=== PATIENT | male | born 1955 | race Caucasian/White ===

== ENCOUNTER → 2018-02-12 | Outpatient (CLI) | payer BC ==
[~2018-02-12] MED LIST: ALEVE 220MG220 MG PO; ALEVE220 MG PO; ASPIR-LOW81 MG PO; ASPIRIN E.C. 8181 MG PO; CALCIUM 600/VIT1 CAP PO; DULCOLAX PO; FERROUS SULFATE65 MG PO; FIBER SUPPLEMENT PO; FOLIC ACID 40400 MCG PO; GLUCOPHAGE500 MG/TAB PO; LEVOTHYROXINE PO; LIPITOR20 MG PO; LIPOFLAVONOID1 GEL TP; LOPRESSOR 225 MG/TAB PO; METANX PO; NEURONTIN100 MG/CAP PO; NORCO 325 MG-7.1 TAB PO; ROXICODONE 55 MG/TAB PO; SUPER EPA W/BO400 MG PO; SYNTHROID0.137 MG PO; THYROXINE; TYLENOL 325MG325 MG PO; VITAMIN C500 MG PO; VITAMIN D32000 IU PO; ZYLOPRIM 100MG100 MG PO
[2018-02-12 16:10] LABS: SYNOVIAL FL. MONONUCLEAR 39.6 % (0-75); SYNOVIAL FLUID RBC 17000 /mm3 (0-0); SYNOVIAL FLUID WBC 1164 /mm3 (200-600)
[2018-02-12 16:14] LABS: SYNOVIAL FLUID APPEARANCE CLOUDY; SYNOVIAL FLUID COLOR BROWN
== END ==
LOC: ZCOL.LAB 16:00
PROVIDERS: Orthopaedic Surgery
DX: M25.562 Pain in left knee (principal)

== ENCOUNTER 2018-07-02 06:22 | Day surgery (SDC) | payer BC ==
[~2018-07-02] VITALS: Ht 185.4 cm; Wt 166.8 kg
[2018-07-02 07:32] VITALS: BP 139/79; PULSE 74; TEMP 98.6
[2018-07-02] MEDS ORDERED: DULCOLAX STOOL100 MG PO (07:34)
[2018-07-02] MEDS ORDERED: CALCIUM CARBON650 M2 PO (07:35)
[2018-07-02] MEDS ORDERED: VITAMIN D31000 I1 PO (07:36)
[2018-07-02] MEDS ORDERED: FIBERCON PO (07:37)
[2018-07-02] MEDS ORDERED: SYNTHROID0.125 MG/T PO (07:39)
[2018-07-02] MEDS ORDERED: ZYLOPRIM 100MG100 MG PO (07:41)
[2018-07-02] MEDS ORDERED: LOPRESSOR 225 MG/TAB PO (07:42)
[2018-07-02] MEDS ORDERED: ASPIRIN 81M81 MG/TA2 PO (07:42)
[2018-07-02] MEDS ORDERED: LIPITOR20 MG PO (07:43)
[2018-07-02] MEDS ORDERED: METANX 2.8 MG-21 TA1 PO (07:44)
[2018-07-02] MEDS ORDERED: NEURONTIN800 MG/TAB PO (07:45)
[2018-07-02] MEDS ORDERED: GLUCOPHAGE1000 MG PO (07:45)
[2018-07-02] MEDS ORDERED: PROAIR HFA0.09 MG/AC IH (07:46)
[2018-07-02] MEDS ORDERED: CEPHALEXIN500 M1 PO (07:46)
[2018-07-02 10:27] VITALS: TEMP 97.8
[2018-07-02 10:35] VITALS: BP 120/57; PULSE 65
[2018-07-02 10:50] VITALS: BP 150/75; PULSE 64
[2018-07-02 11:05] VITALS: BP 137/75; PULSE 63
== END 2018-07-02 11:25 | disposition home or self-care (01) ==
LOC: SDCO 06:22
DX: N20.1 Calculus of ureter (principal); G47.33 Obstructive sleep apnea (adult) (pediatric); M17.0 Bilateral primary osteoarthritis of knee; G89.29 Other chronic pain; M54.2 Cervicalgia; E03.9 Hypothyroidism, unspecified; R73.03 Prediabetes; M10.9 Gout, unspecified; G62.9 Polyneuropathy, unspecified; J44.9 Chronic obstructive pulmonary disease, unspecified; E66.9 Obesity, unspecified; Z68.42 Body mass index [BMI] 45.0-49.9, adult; Z79.84 Long term (current) use of oral hypoglycemic drugs; Z79.82 Long term (current) use of aspirin; Z91.030 Bee allergy status; Z96.652 Presence of left artificial knee joint; Z90.49 Acquired absence of other specified parts of digestive tract; Z87.891 Personal history of nicotine dependence; Z86.73 Personal history of transient ischemic attack (TIA), and cerebral infarction without residual deficits; Z82.49 Family history of ischemic heart disease and other diseases of the circulatory system
CPT/HCPCS: C1769; C2617; J0690; J2405; J2704; J3010; J7030; Q9967

== ENCOUNTER → 2018-08-28 | Outpatient (CLI) | payer BC ==
[~2018-08-28] MED LIST changes: +ASPIRIN 81M81 MG/TA2 PO; +CALCITRATE 3151 TAB PO; +CEPHALEXIN500 M1 PO; +DULCOLAX STOOL100 MG PO; +FIBERCON PO; +GLUCOPHAGE1000 MG PO; +METANX 2.8 MG-21 TA1 PO; +NEURONTIN800 MG/TAB PO; +PREDNISONE 5MG5 MG PO; +PROAIR HFA0.09 MG/AC IH; +SYNTHROID0.125 MG/T PO; +VITAMIN D 400400 IU PO; +VITAMIN D31000 I1 PO
== END ==
LOC: COL.RAD 09:11
DX: R10.31 Right lower quadrant pain (principal); R10.11 Right upper quadrant pain

== ENCOUNTER 2019-01-26 17:00 | Emergency (ER) | payer BC ==
[~2019-01-26] VITALS: Ht 185.4 cm; Wt 172.7 kg
[2019-01-26 17:04] VITALS: TEMP 99
[2019-01-26 18:07] LABS: BASO # 0.1 (0.0-0.2); BASO % 0.6 % (0.0-2.0); EOS # 0.4 (0.0-0.7); EOS % 4.4 % (0-4.0); GRAN # 6.7 (1.4-6.5); HEMATOCRIT 39.8 % (42.0-52.0); HEMOGLOBIN 13.2 g/dl (13.5-18.0); LYMPH # 1.1 (1.2-3.4); LYMPH % 12.5 % (20.0-51.0); MEAN CELL VOLUME 93 fl (80.0-100.0); MEAN CORPUSCULAR HEMOGLOBIN 31 pg (27.0-31.0); MEAN CORPUSCULAR HGB CONC 33 g/dl (33.0-37.0); MEAN PLATELET VOLUME 9.7 fl (7.4-10.4); MONO # 0.5 (0.1-0.6); MONO % 5.2 % (1.7-9.3); PLATELET COUNT 177 K/mm3 (130-400); RED BLOOD COUNT 4.29 M/mm3 (4.20-5.60); REDCELL DISTRIBUTION WIDTH-CV 15.4 % (11.5-14.5)
[2019-01-26 18:30] LABS: ALBUMIN 3.8 gm/dL (3.5-5.0); BILIRUBIN,TOTAL 0.9 mg/dL (0.0-1.0); CALCIUM 8.7 mg/dL (8.4-10.2); CREATININE, serum 1.39 mg/dL (0.66-1.25); POTASSIUM 3.9 mmol/L (3.4-5.0); TOTAL PROTEIN 7.4 gm/dL (6.4-8.2)
[2019-01-26] MEDS ORDERED: FLEXERIL 1010 MG/TAB PO (20:14)
[2019-01-26 20:51] VITALS: BP 122/59; PULSE 70
== END 2019-01-26 20:51 | disposition home or self-care (01) ==
LOC: COL.ER 17:00
PROVIDERS: Emergency Medicine
DX: M54.6 Pain in thoracic spine (principal); R07.89 Other chest pain; Z87.442 Personal history of urinary calculi; Z79.82 Long term (current) use of aspirin
CPT/HCPCS: Q9967

== ENCOUNTER → 2019-02-12 | Outpatient (CLI) | payer BC ==
[~2019-02-12] MED LIST changes: +FLEXERIL 1010 MG/TAB PO
== END ==
LOC: COL.RAD 09:45
DX: K83.8 Other specified diseases of biliary tract (principal); R74.8 Abnormal levels of other serum enzymes; Z90.49 Acquired absence of other specified parts of digestive tract

== ENCOUNTER → 2019-03-05 | Outpatient (CLI) | payer BC | LOC: COL.RAD 07:01 | DX: R74.8 Abnormal levels of other serum enzymes (principal); Z90.49 Acquired absence of other specified parts of digestive tract ==

== ENCOUNTER 2019-07-30 19:40 | Emergency (ER) | payer BC ==
[~2019-07-30] VITALS: Ht 182.9 cm; Wt 175.0 kg
[2019-07-30 19:44] VITALS: TEMP 98.6
[2019-07-30 20:36] LABS: BASO # 0.1 (0.0-0.2); BASO % 0.8 % (0.0-2.0); EOS # 0.5 (0.0-0.7); EOS % 4.8 % (0-4.0); GRAN # 6.3 (1.4-6.5); GRAN % 67.6 % (42.2-75.2); HEMATOCRIT 39.7 % (42.0-52.0); HEMOGLOBIN 12.8 g/dl (13.5-18.0); LYMPH % 21.3 % (20.0-51.0); MEAN CELL VOLUME 90 fl (80.0-100.0); MEAN CORPUSCULAR HEMOGLOBIN 29 pg (27.0-31.0); MEAN CORPUSCULAR HGB CONC 32 g/dl (33.0-37.0); MEAN PLATELET VOLUME 9.9 fl (7.4-10.4); MONO # 0.5 (0.1-0.6); PLATELET COUNT 195 K/mm3 (130-400); RED BLOOD COUNT 4.43 M/mm3 (4.20-5.60); REDCELL DISTRIBUTION WIDTH-CV 15.7 % (11.5-14.5)
[2019-07-30 20:44] LABS: ALANINE AMINOTRANSFERASE 21 U/L (21-72); ALKALINE PHOSPHATASE 157 U/L (50-136); ANION GAP 13 mmol/L (7-16); AST,SGOT 29 U/L (15-37); BILIRUBIN,TOTAL 0.8 mg/dL (0.0-1.0); BLOOD UREA NITROGEN 12 mg/dL (9-20); CALCIUM 8.6 mg/dL (8.4-10.2); CARBON DIOXIDE 24 mmol/L (22-30); CHLORIDE 105 mmol/L (98-107); CREATININE, serum 1.28 (0.66-1.25); GLUCOSE 171 mg/dL (74-106); POTASSIUM 3.6 mmol/L (3.4-5.0); SODIUM 142 mmol/L (137-145); TOTAL PROTEIN 7.3 gm/dL (6.4-8.2)
[2019-07-30 20:45] LABS: INR 1.2 (0.8-3.0); PROTHROMBIN TIME 13.9 SECONDS (9.7-12.8)
[2019-07-30 21:14] LABS: TROPONIN-I < 0.012 ng/mL (0.000-0.035)
[2019-07-30 22:12] VITALS: BP 126/60; PULSE 83
== END 2019-07-30 22:22 | disposition home or self-care (01) ==
LOC: COL.ER 19:40
PROVIDERS: Emergency Medicine
DX: R27.0 Ataxia, unspecified (principal); G47.33 Obstructive sleep apnea (adult) (pediatric); E03.9 Hypothyroidism, unspecified; N18.9 Chronic kidney disease, unspecified; E66.9 Obesity, unspecified; G62.9 Polyneuropathy, unspecified; Z90.49 Acquired absence of other specified parts of digestive tract; Z96.652 Presence of left artificial knee joint; Z87.891 Personal history of nicotine dependence; Z79.82 Long term (current) use of aspirin; Z79.84 Long term (current) use of oral hypoglycemic drugs

== ENCOUNTER 2019-09-13 12:35 | Inpatient (IN) | payer BC, MEDICARE ==
[2019-11-17] VITALS (8 sets, daily range): BP systolic 94–127; BP diastolic 44–86; PULSE 59–69; TEMP 98.1
[2019-11-17] MEDS ORDERED: ELIQUIS 2.5 PO (07:44)
[2019-11-17] MEDS ORDERED: NORCO 325 MG-51 TAB PO (07:46)
--- NOTE | 2019-11-17 10:36 | NUR ---
Initial visit; Patient and his thanked [employer] S[employer]er for looking in on him and offering God's blessings.
--- NOTE | 2019-11-17 14:41 | NUR ---
DEISI met with the patient's , Herminia (ph#[phone]), to discuss discharge plan. The patient was in surgery. The patient lives in [place] with his . Herminia reports that the patient is independent with ADLs and that he has a cane and walker. The patient's PCP is Dr. Raf Gamble and he receives his medications at [facility]. Herminia reports no difficulties obtaining his meds. The patient's advanced directives are in EMR. His DPOA-HC is his . The patient plans to return home with his and receive outpatient PT at [facility] upon discharge. No additional needs at this time.
--- NOTE | 2019-11-17 14:50 | NUR ---
returned to room from PACU per bed, awake and alert, IV infusing and placed on pump at 125ml/hr, O2 on at 3L/NC, ojeda cath patent draining clear yellow urine, SCDs on bilaterally and lindy wraps to bilateral lower extremities, dressing to right knee CD&I, has full sensation and is able to move lower extremities, taking sips of water and tolerates well, denies needs, family at bedside
--- NOTE | 2019-11-17 15:15 | NUR ---
visits with family between checks, provided water and ice per his rerquest
--- NOTE | 2019-11-17 15:40 | NUR ---
provided toast and applesauce per patient's request for something to eat
--- NOTE | 2019-11-17 15:53 | NUR ---
report now given to SAYDA Lopez
--- NOTE | 2019-11-17 16:00 | NUR ---
TAKING OVER PATIENT'S CARE. RECEIVED REPORT FROM SAYDA ROMERO.
--- NOTE | 2019-11-17 16:50 | NUR ---
PATIENT NOW C/O PAIN STATING IN LLE RATED AT 5/10. GAVE PRN ROXICODONE, TWO TABS. PATIENT TOLERATING DIET WELL. NO C/O N/V. VSS. AT BEDSIDE.
--- NOTE | 2019-11-17 21:52 | NUR ---
Pt resting in bed. Ice to left knee. Alert and oriented with VSS. PM meds given. Licea catheter to dependent drainage. Pt rates pain about 4, requests prn pain medicine. denies needs at this time. call light within reach, will continue to monitor
--- NOTE | 2019-11-17 23:17 | NUR ---
Pt ambulated with nursing staff in room. walked about 25 ft
[2019-11-18] VITALS (7 sets, daily range): BP systolic 110–136; BP diastolic 54–67; PULSE 65–89; TEMP 97.7–99.3
--- NOTE | 2019-11-18 02:10 | NUR ---
Pt requests PRN pain medicine. Given per PRN orders. Denies other needs at this time. Call light within reach, will continue to monitor
[2019-11-18 07:07] LABS: HEMOGLOBIN 10.9 g/dl (13.5-18.0)
[2019-11-18 07:11] LABS: HEMATOCRIT 34.4 % (42.0-52.0)
--- NOTE | 2019-11-18 09:00 | NUR ---
Patient alert and oriented, answers questions appropriately. See assessment. RLE with ARISTEO in place, neuros intact, pulses palpable. Ice pack in place to RLE. Ambulates with walker and gait belt. C/o pain 4/10 to RLE. No other c/o at this time.
--- NOTE | 2019-11-18 11:10 | NUR ---
First visit from the scrip clerk. No needs right now.
--- NOTE | 2019-11-18 19:00 | NUR ---
Report received. Assumed care for hourly shift. Assessment complete. VS stable. A&Ox3. C/O pain to right knee-rating it 5/10-described as constant ache with some cramping. Oxycodone 10mg given per dr order. Reapplied lindy bandages to lower extremities. SCDs bilat. Cryocuff with fresh ice/water. Left hand INT flushes without difficulty. Encouraged to use IS. Denies nausea/shortness of breath. Assisted with repositioning. Denies concerns. Call light in reach. Will monitor.
--- NOTE | 2019-11-18 22:00 | NUR ---
Ambualted in hallway for approx 100 feet with stand by assistx2. Tolerated well.
--- NOTE | 2019-11-19 03:45 | NUR ---
Has rested well later this shift. Has struggled some getting to bathroom-states he is having a hard time finding the energy to get out of bed and moving the right lower extremity. Oxycodone 10mg given per dr order for pain rated 5/10 to right lower extremity-described as constant ache with occasional cramp. Did express concern with going home as he doesnt think he can manage with out assistance. Denies nausea/shortness of breath at rest. Tolerating PO. Voiding without difficulty. +flatus. Does have shortness of breath with exertion. Left lower extremity lindy bandage removed-states he just needs a break from it. Cryocuff with fresh ice water. Requested AM synthroid dose given now. Denies questions/concerns. Call light in reach. Will monitor.
[2019-11-19 03:55] VITALS: BP 149/70; PULSE 86; TEMP 98.6
--- NOTE | 2019-11-19 08:00 | NUR ---
PATIENT IS A&O. ASKS LOTS OF QUESTIONS AND TAKES NOTES DURING CONVERSATION WITH STAFF TO HELP HIM REMEMBER. PATIENT TAKE IS VERY SPECIFIC ABOUT CARES AND REQUIRES LOTS OF TIME WHEN IN HIS ROOM. PATIENT IS VERY OBESE, ACEWRAP TO BLE TEDS DO NOT FIT. RTK DRESSING IS CD&I WITH AQUACEL AND CRYOCUFF INPLACE. WEAK PEDAL PULSES TO BLE. NOTED +2 CHRONIC BLE EDEMA. 1-2 ASSIST. PATIENT IS VERY SLOW WITH ACTIVITY. PATIENT WANTING TO STAY IN HOSPITAL FOR THE WEEKEND. ORTHO DISCUSSED DISCHARGE TOMORROW. PATIENT IS NOT INTERESTED IN REHAB AT THIS TIME AND WANTS TO DISCHARGE TO HOME WITH .
[2019-11-19 08:41] VITALS: BP 156/71; PULSE 84; TEMP 98.7
[2019-11-19 12:28] VITALS: BP 119/53; PULSE 67; TEMP 98.7
[2019-11-19 16:58] VITALS: BP 127/57; PULSE 80; TEMP 98.4
[2019-11-19] MEDS ORDERED: ELIQUIS 5MG PO (18:29)
[2019-11-19] MEDS ORDERED: NORCO 325 MG-7.1 TAB PO (18:29)
[2019-11-19] MEDS ORDERED: ROXICODONE 55 MG/TAB PO (18:31)
[2019-11-19 20:00] VITALS: BP 144/75; PULSE 91; TEMP 99
--- NOTE | 2019-11-19 21:00 | NUR ---
Report received. Assumed care for sander and buffer. Assessment complete. VS stable. A&Ox3. Up to bathroom to void. Moving better than previous night. Did ambulate in hallway for approx 150 feet with stand-by assist with walker/gait belt. Denies nausea. Rating pain 5/10 to right knee-described as constant throbbing-oxycodone 10mg given [address] dr order. Tolerating PO. Voiding without difficulty. +flatus. Requesting a break from bilat lindy bandages/cryocuff. Will reapply in one hour. Assited with positioning in bed using proper alignment. Call light in reach. CPAP on. Will continue to monitor.
[2019-11-20 00:05] VITALS: BP 132/67; PULSE 83; TEMP 98.1
--- NOTE | 2019-11-20 04:00 | NUR ---
Has increased activity and been more independent this shift. Pain has been controlled adequately with PO pain meds. Voiding without difficulty. +Flatus. NO nausea/shortness of breath-Tolerating PO. VS remained stable. Ambulated in hallway last NOC with standby assist. Will bandages bilat/refused SCDs. Denies needs. Call light in reach. WIll monitor.
[2019-11-20 04:06] VITALS: BP 121/62; PULSE 74; TEMP 98.4
[2019-11-20 07:22] VITALS: BP 130/54; PULSE 78; TEMP 98
--- NOTE | 2019-11-20 11:40 | NUR ---
Patient sitting up in bed upon shift assessment. States his pain has been well controlled and the cryo-cuff helps with the pain. Patient has multiple blisters noted along the medial edge of his aquacell dressing on the right knee. There a number of very small fluid filled blisters and one large horizontal blister. Patient states these blisters have continued to increase in size since yesterday. some drainage noted to aquacell. Dr. Lombardi removed aquacell to ensure the blisters did not extend from the incision. Dr. Lombardi instructed to put on a new aquacell but place it slightly more lateral on the knee so the adhesive edge is not touching the blisters and to lightly cover the large blister with gauze and paper tape. Will discontinue use of the lindy wraps. Dr. Lombardi instructed patient to continue with frequent ankle pumps, wiggling toes and ambulating as tolerated. Patient has no further concerns at this time. Call light in reach.
[2019-11-20 11:45] VITALS: BP 146/53; PULSE 80; TEMP 97.9
--- NOTE | 2019-11-20 15:02 | NUR ---
Patient discharged to home accompanied by his and a friend. All discharge instructions reviewed and scripts for new medications given to patient. Additional aquacell given to patient to change at 7 days post-op. Patient and express no cnocerns regarding dressing change. Patient states he has no further questions. Patient and in agreement with discharge at this time. Patient wheeled out by TACHO Cadet.
== END 2019-11-20 15:06 | disposition home or self-care (01) | DRG 470 ==
LOC: JCC 11-17 07:54
PROVIDERS: ADMIT Orthopaedic Surgery
PROC: 0SRC0J9 Replacement of Right Knee Joint with Synthetic Substitute, Cemented, Open Approach (ICD-10-PCS; principal; 2019-11-17 13:15)
DX: M17.11 Unilateral primary osteoarthritis, right knee (principal); E66.01 Morbid (severe) obesity due to excess calories; I10 Essential (primary) hypertension; E11.42 Type 2 diabetes mellitus with diabetic polyneuropathy; J45.909 Unspecified asthma, uncomplicated; G47.30 Sleep apnea, unspecified; E03.9 Hypothyroidism, unspecified; E78.5 Hyperlipidemia, unspecified; M10.9 Gout, unspecified; Z90.49 Acquired absence of other specified parts of digestive tract; Z91.030 Bee allergy status; Z96.652 Presence of left artificial knee joint; Z79.82 Long term (current) use of aspirin; Z79.84 Long term (current) use of oral hypoglycemic drugs; Z87.442 Personal history of urinary calculi
CPT/HCPCS: 99221; 99232-AI; A4314; A9284; C1776; J0690; J2250; J2405; J2704; J3010; J3370; J7030

== ENCOUNTER 2019-10-31 11:12 | Emergency (ER) | payer BC ==
[~2019-10-31] VITALS: Ht 182.9 cm; Wt 172.7 kg
[2019-10-31 11:44] VITALS: BP 116/71; TEMP 98.1
[2019-10-31 15:04] LABS: BASO # 0.1 (0.0-0.2); BASO % 0.6 % (0.0-2.0); EOS # 0.3 (0.0-0.7); EOS % 3.2 % (0-4.0); GRAN # 6.9 (1.4-6.5); GRAN % 73.9 % (42.2-75.2); HEMATOCRIT 42.7 % (42.0-52.0); HEMOGLOBIN 13.6 g/dl (13.5-18.0); LYMPH # 1.5 (1.2-3.4); LYMPH % 15.8 % (20.0-51.0); MEAN CELL VOLUME 91 fl (80.0-100.0); MEAN CORPUSCULAR HEMOGLOBIN 29 pg (27.0-31.0); MEAN CORPUSCULAR HGB CONC 32 g/dl (33.0-37.0); MEAN PLATELET VOLUME 9.6 fl (7.4-10.4); MONO # 0.6 (0.1-0.6); PLATELET COUNT 188 K/mm3 (130-400); RED BLOOD COUNT 4.69 M/mm3 (4.20-5.60); REDCELL DISTRIBUTION WIDTH-CV 16.4 % (11.5-14.5)
[2019-10-31 15:22] LABS: ALANINE AMINOTRANSFERASE 24 U/L (21-72); ALBUMIN 4.1 gm/dL (3.5-5.0); ALKALINE PHOSPHATASE 167 U/L (50-136); ANION GAP 9 mmol/L (7-16); AST,SGOT 26 U/L (15-37); BILIRUBIN,TOTAL 0.8 mg/dL (0.0-1.0); BLOOD UREA NITROGEN 11 mg/dL (9-20); CARBON DIOXIDE 26 mmol/L (22-30); CHLORIDE 106 mmol/L (98-107); CREATININE, serum 1.19 (0.66-1.25); GLUCOSE 121 mg/dL (74-106); POTASSIUM 4.1 mmol/L (3.4-5.0); SODIUM 140 mmol/L (137-145); TOTAL PROTEIN 7.7 gm/dL (6.4-8.2)
[2019-10-31 15:31] LABS: TROPONIN-I < 0.012 ng/mL (0.000-0.035)
[2019-10-31 17:06] VITALS: PULSE 76
== END 2019-10-31 17:06 | disposition home or self-care (01) ==
LOC: COL.ER 11:12
PROVIDERS: Physician Assistant
DX: G51.9 Disorder of facial nerve, unspecified (principal); R07.89 Other chest pain; E66.9 Obesity, unspecified; N18.9 Chronic kidney disease, unspecified; G62.9 Polyneuropathy, unspecified; Z90.89 Acquired absence of other organs; Z79.84 Long term (current) use of oral hypoglycemic drugs; Z79.82 Long term (current) use of aspirin

== ENCOUNTER 2023-06-13 14:37 | Outpatient (RCR) | payer MEDICARE ==
[~2023-06-13 14:37] MED LIST changes: +ELIQUIS 2.5 PO; +ELIQUIS 5MG PO; +NORCO 325 MG-51 TAB PO
[2023-08-22] MEDS ORDERED: JARDIANCE25 (20:05)
[2023-08-22] MEDS ORDERED: PRINIVIL5 MG PO (20:06)
[2023-08-22] MEDS ORDERED: METAMUCIL3.4 GM/DOS PO (20:06)
[2023-08-22] MEDS ORDERED: MASON NATURAL2000 IU PO (20:07)
[2023-08-22] MEDS ORDERED: ASPIRIN 81M81 MG/TA2 PO (20:07)
[2023-08-22] MEDS ORDERED: OZEMPIC1 MG/0.71 SQ (20:10)
[2023-08-23] MEDS ORDERED: CARDIZEM CD 30300 MG PO (09:53)
[2023-08-23] MEDS ORDERED: ELIQUIS 5MG PO (09:53)
== END 2023-07-03 | disposition home or self-care (01) ==
LOC: MKS.ESL.PT
DX: E11.42 Type 2 diabetes mellitus with diabetic polyneuropathy (principal)

== ENCOUNTER 2023-10-24 15:17 | Inpatient (IN) | payer MEDICARE ==
[~2023-10-24] VITALS: Ht 185.4 cm; Wt 159.0 kg
[~2023-10-24 15:17] MED LIST changes: +CARDIZEM CD 30300 MG PO; +JARDIANCE25; +MASON NATURAL2000 IU PO; +METAMUCIL3.4 GM/DOS PO; +OZEMPIC1 MG/0.71 SQ; +PRINIVIL5 MG PO
[2023-10-29] VITALS (7 sets, daily range): BP systolic 91–127; BP diastolic 66–88; PULSE 74–99; TEMP 97.8–99
[2023-10-29] MEDS ORDERED: NS Flush 10 ML SYRINGE BID ICA SCH (09:00)
[2023-10-29] MEDS ORDERED: NS Flush 10 ML SYRINGE PRN ICA (09:00)
[2023-10-29 09:23] LABS: BASO # 0.1 K/mm3 (0.0-0.2); BASO % 0.9 % (0.0-2.0); EOS # 0.5 K/mm3 (0.0-0.7); EOS % 4.7 % (0.0-4.0); GRAN # 6.8 K/mm3 (1.4-6.5); GRAN % 69.3 % (42.2-75.2); HEMATOCRIT 46.3 % (42.0-52.0); HEMOGLOBIN 15.3 g/dl (13.5-18.0); LYMPH % 19.9 % (20.0-51.0); MEAN CELL VOLUME 88 fl (80.0-100.0); MEAN CORPUSCULAR HEMOGLOBIN 29 pg (27-31); MEAN CORPUSCULAR HGB CONC 33 g/dl (33.0-37.0); MEAN PLATELET VOLUME 9.9 fl (7.4-10.4); MONO # 0.5 K/mm3 (0.1-0.6); MONO % 4.9 % (1.7-9.3); PLATELET COUNT 211 K/mm3 (130-400); RED BLOOD COUNT 5.24 M/mm3 (4.20-5.60); REDCELL DISTRIBUTION WIDTH-CV 16.2 % (11.5-14.5)
[2023-10-29 09:32] LABS: ALBUMIN 3.3 gm/dL (3.4-4.8); CALCIUM 8.5 mg/dL (8.4-10.2); CREATININE, serum 1.36 mg/dL (0.72-1.25); MAGNESIUM 1.6 mg/dL (1.6-2.6); POTASSIUM 3.7 mmol/L (3.5-4.5); TOTAL PROTEIN 6.7 gm/dL (6.2-8.1)
[2023-10-29 09:48] LABS: INR 1.4 (0.8-3.0); PROTHROMBIN TIME 15.4 SECONDS (9.7-12.8)
--- NOTE | 2023-10-29 10:00 | NUR ---
PT IS A DIRECT ADMIT ON THE FLOOR VIA WHEELCHAIR APPROX 0850, AT BEDSIDE. PT HAS OWN CPAP AND ASKING FOR DISTILLED WATER. INTAKE DONE BY SAYDA JACOBSEN. TELE ON AND PT IN PERSONAL CLOTHES. 22G IN RIGHT WRIST STARTED INTIALLY, PT SHORTLY AFTER COMPLAINING OF DISCOMFORT AT IV SITE. IV IN RIGHT WRIST REMOVED AND A 20G IN RIGHT FOREARM STARTED. PT A&OX4, LUNGS CTA, PT DENIES RECENT FALL AND REPORTS GETTING AROUND INDEPENDENTLY AT HOME. PT SITTING IN RECLINER AND DENIES NEEDS AT THIS TIME. PT ORIENTED TO ROOM AND DENIES NEEDS AT THIS TIME
[2023-10-29] MEDS ORDERED: COGNIQUIL CAPS1 EACH PO (10:34)
[2023-10-29] MEDS ORDERED: Temazepam 15 MG CAP PO PRN (11:15)
[2023-10-29] MEDS ORDERED: Acetaminophen 500 MG TAB PO PRN (11:15)
[2023-10-29] MEDS ORDERED: Docusate Sodium 100 MG CAP PO PRN (11:15)
[2023-10-29] MEDS ORDERED: *Potassium Replacement Protocol MC SCH (13:00)
[2023-10-29] MEDS ORDERED: Magnesium Sulfate 4% 50 ML IV ONE (13:00)
[2023-10-29] MEDS ORDERED: Potassium Bicarbonate/Citrate 20 MEQ Effervescent TAB PO SCH (13:00)
[2023-10-29] MEDS ORDERED: HYDROcodone/Acetaminophen 7.5-325 MG TAB PO PRN (13:15)
[2023-10-29] MEDS ORDERED: Albuterol 0.083% Neb Soln 2.5 MG/3 ML UD IH PRN (13:15)
[2023-10-29] MEDS ORDERED: Gabapentin 400 MG CAP PO SCH (14:00)
--- NOTE | 2023-10-29 14:00 | NUR ---
2G MAG HUNG PER ORDER AND POTASSIUM REPLACED DOSE 1/2. PT REPORTING LIGHTHEADEDNESSM, CARDIOLOGY TEAM AWARE. FALL RISK WRIST BAND PLACED ON PT AND MARKER PLACED ON DOOR. PT NOT IN YELLOW GOWN AND STILL IN PERSONAL CLOTHES, CONTINENT, FULLY ORIENTED AND ABLE TO CALL WHEN NEED. PT GIVEN STERILE WATER FOR CPAP AND IS LAYING IN BED. PT GIVEN PRINTED EDUCATION ON SOTALOL AND DILTIAZEM. BED ALARM ON, CALL LIGHT IN REACH, BED IN LOWEST POSITION.
[2023-10-29] MEDS ORDERED: metFORMIN 500 MG TAB PO SCH (17:00)
--- NOTE | 2023-10-29 19:27 | NUR ---
REPORT GIVEN TO SAYDA CORONADO
--- NOTE | 2023-10-29 19:50 | NUR ---
Assessment complete. A&Ox4. Denies nausea/shortness of breath/chest pain. VS stable. Currently or RA. TELE reporting AFIB. INT to left FA flushes without difficulty. No s/s of infiltration noted. Rating pain 6/10 to bilat lower ext-described as burning r/t neuropathy. Will contact Dr Leonard for new orders for home medications. QTC 441. Plan of care discussed for this shift to include meds/pain control/tele/EKG/calling for questions/concerns. Verbalizes understanding. Call light in reach. Will monitor.
--- NOTE | 2023-10-29 20:51 | NUR ---
Sandrine requesting [place]-states he takes norco several times a day for bilat lower ext pain and neuropathy. Dr Leonard paged as currently not ordered. States okay to start home dose.
[2023-10-29] MEDS ORDERED: Apixaban 5 MG TAB PO SCH (21:00)
[2023-10-29] MEDS ORDERED: Cholecalciferol (Vit D3) 1000 Units TAB PO SCH (21:00)
[2023-10-29] MEDS ORDERED: Allopurinol 100 MG TAB PO SCH (21:00)
[2023-10-29] MEDS ORDERED: Atorvastatin 20 MG TAB PO SCH (21:00)
--- NOTE | 2023-10-29 21:53 | NUR ---
Up to bathroom at this time-stand by assist. Voided without difficulty. Back to bed at this time. CPAP on. Will monitor.
[2023-10-30] VITALS (14 sets, daily range): BP systolic 92–128; BP diastolic 57–77; PULSE 71–89; TEMP 97.1–98.3
--- NOTE | 2023-10-30 04:50 | NUR ---
Patient had an uneventful night. Received norco x1 for leg pain. Denied chest pain/shortness of breath/nausea. VS remained stable-slightly hypotensive. Denies current questions/concerns. Call light in reach. Will monitor.
--- NOTE | 2023-10-30 05:33 | NUR ---
Patient requested norco for left foot pain-described as burning-rated 7/10. [place] given per dr order.
--- NOTE | 2023-10-30 06:48 | NUR ---
Report given to SAYDA Benitez.
[2023-10-30] MEDS ORDERED: Psyllium Powder 5.8 G (3.4 G Psyllium) PACKET PO SCH (07:00)
[2023-10-30 07:49] LABS: BASO # 0.1 K/mm3 (0.0-0.2); EOS # 0.5 K/mm3 (0.0-0.7); EOS % 5.2 % (0.0-4.0); GRAN # 5.2 K/mm3 (1.4-6.5); GRAN % 60.2 % (42.2-75.2); HEMATOCRIT 43.4 % (42.0-52.0); HEMOGLOBIN 13.7 g/dl (13.5-18.0); LYMPH # 2.3 K/mm3 (1.2-3.4); MEAN CELL VOLUME 90 fl (80.0-100.0); MEAN CORPUSCULAR HEMOGLOBIN 28 pg (27-31); MEAN CORPUSCULAR HGB CONC 32 g/dl (33.0-37.0); MEAN PLATELET VOLUME 9.5 fl (7.4-10.4); MONO # 0.6 K/mm3 (0.1-0.6); MONO % 6.4 % (1.7-9.3); PLATELET COUNT 208 K/mm3 (130-400); RED BLOOD COUNT 4.82 M/mm3 (4.20-5.60); REDCELL DISTRIBUTION WIDTH-CV 16.1 % (11.5-14.5)
[2023-10-30 08:13] LABS: CALCIUM 8.5 mg/dL (8.4-10.2); CREATININE, serum 1.35 mg/dL (0.72-1.25); POTASSIUM 3.7 mmol/L (3.5-4.5)
[2023-10-30] MEDS ORDERED: Potassium Bicarbonate/Citrate 20 MEQ Effervescent TAB PO SCH (08:30)
--- NOTE | 2023-10-30 08:45 | NUR ---
PT LAYING IN BED UPON ENTERING, CPAP ON. ASSESSMENT DONE, MEDS GIVEN PER ORDER. POTASSIUM BEING REPLACED, DOSE 1/2 GIVEN. PT DENIES PAIN OR SHORTNESS OF BREATH AT THIS TIME. LUNGS CTA, HEARTRATE IRREGULAR. DAY 2 OF SOTALOL DOSE GIVEN. IV IN LEFT FOREARM FLUSHES WELL WITH NO SIGNS OF COMPLICATIONS. PT REFUSED COLACE REPORTING SOFT FORMED STOOLS. BREAKFAST EATEN AND TRAY REMOVED FROM ROOM. PT DENIES LIGHTHEADNESS OR DIZZINESS AND NIGHT NURSE REPORTED THIS WELL STATING THAT HE WAS TAKEN OFF FALL RISK THROUGHOUT THE NIGHT. THIS NURSE THINKS THAT PT IS A LOW FALL RISK AT THIS TIME. PT DENIES NEEDS. BED IN LOWEST POSITION AND CALL LIGHT IN REACH
[2023-10-30] MEDS ORDERED: Empagliflozin 25 MG TAB PO SCH (09:00)
[2023-10-30] MEDS ORDERED: Docusate Sodium 100 MG CAP PO SCH (09:00)
--- NOTE | 2023-10-30 11:01 | NUR ---
metal casting trades worker met with pt and , Herminia [phone] to discuss discharge planning. Pt sees Dr. Raf Gamble and obtains medications from [facility] with no difficulties. Pt is independent with ADLS. She uses a cane and CPAP for DME. Pt feels as though he gets already okay and declines PT/OT services. Pt intends to return home with his at discharge. Herminia is DPOA-HC and this is on file. Discharge Plan: Home
--- NOTE | 2023-10-30 11:02 | NUR ---
Several visit attempts; Human Service Specialist left a card letting patient know of the availability of Spiritual Care and Human Service Specialist's presence in the hospital. Respiratory with patient at this time.
--- NOTE | 2023-10-30 12:00 | NUR ---
DOSE 2/2 OF POTASSIUM REPLACEMENT GIVEN
--- NOTE | 2023-10-30 18:55 | NUR ---
REPORT GIVEN TO SAYDA CORONADO
--- NOTE | 2023-10-30 20:00 | NUR ---
Assessment complete. A&Ox4. Denies nausea/shortness of breath. Rating pain 4/10 to bilat lower ext-described as burning. States he would like a pain pill a 2300 and is okay to wait until then. VS stable. TELE reporting SR. Room air. Left forearm INT flushes without difficulty. Voiding without difficulty. Plan of care discussed for this shift to include meds/pain control/NPO at 0000. Verbalizes understanding. Call light in reach. Will monitor.
[2023-10-31 03:22] VITALS: BP 124/74; PULSE 73; TEMP 97.5
[2023-10-31 04:25] VITALS: BP_SYST 124
--- NOTE | 2023-10-31 05:09 | NUR ---
Patient had an uneventful night. TELE reporting SR. Has remained NPO in case cardiology decides to due a procedure. Currently on day 3 of sotalol.
[2023-10-31 06:28] LABS: BASO # 0.1 K/mm3 (0.0-0.2); BASO % 1.1 % (0.0-2.0); EOS # 0.4 K/mm3 (0.0-0.7); EOS % 4.6 % (0.0-4.0); GRAN # 5.2 K/mm3 (1.4-6.5); HEMATOCRIT 42.7 % (42.0-52.0); HEMOGLOBIN 14.1 g/dl (13.5-18.0); LYMPH # 2.2 K/mm3 (1.2-3.4); LYMPH % 26.1 % (20.0-51.0); MEAN CELL VOLUME 88 fl (80.0-100.0); MEAN CORPUSCULAR HEMOGLOBIN 29 pg (27-31); MEAN CORPUSCULAR HGB CONC 33 g/dl (33.0-37.0); MEAN PLATELET VOLUME 9.9 fl (7.4-10.4); MONO # 0.6 K/mm3 (0.1-0.6); MONO % 6.7 % (1.7-9.3); PLATELET COUNT 200 K/mm3 (130-400); RED BLOOD COUNT 4.86 M/mm3 (4.20-5.60)
[2023-10-31 06:48] LABS: CALCIUM 8.8 mg/dL (8.4-10.2); CREATININE, serum 1.19 mg/dL (0.72-1.25); MAGNESIUM 1.8 mg/dL (1.6-2.6)
[2023-10-31 08:00] VITALS: BP 109/73; PULSE 71; TEMP 97.8
[2023-10-31] MEDS ORDERED: LR 1,000 ML IV SCH (08:00)
--- NOTE | 2023-10-31 08:45 | NUR ---
PT SITTING UP IN BED UPON ENTERING. ASSESSMENT DONE. PT UPDATED ON NPO STATUS, GIVEN ELIQUIS, NORCO, AND SOTALOL WITH SMALL SIP OF WATER. PT DENIES PAIN BUT REPORTS STIFFNESS IN BILATERAL HANDS FROM NEUROPATHY ACCORDING TO PT. PT NOTIFIED THAT HE IS NPO FOR POSSIBLE CARDIOVERSION TODAY AND THAT CARDIOLOGY WILL SEE HIM SOMETIME THIS MORNING AND NOTIFY HIM OF THAT DECISION. PT VERBALIZED UNDERSTANDING AND DENIES NEEDS AT THIS TIME. BED IN LOWEST POSITION, CALL LIGHT IN REACH.
[2023-10-31 09:47] VITALS: BP_SYST 109
--- NOTE | 2023-10-31 10:36 | NUR ---
PT CALLED AND ASKS IF HE CAN EAT. PT TOLD THIS NURSE THAT CARDIOLOGY SPOKE WITH HIM AND ONT PLANNING TO DO CARDIOVERSION AND TOLD HIM HE CAN EAT. THIS NURSE ASKED [place] IF ITS OKAY FOR PT TO EAT AND SHE REPLIES YES AND SAID THAT THIS NURSE CAN CHANGE DIET ORDER
[2023-10-31] MEDS ORDERED: BETAPACE 80MG80 MG PO (10:48)
--- NOTE | 2023-10-31 11:21 | NUR ---
PT UPDATED ON DISCHARGE ORDERS IN PLACE. IV IN LEFT FOREARM REMOVED, CATHETER INTACT. TELE REMOVED AND PT NOTIFIED THAT HE CAN GET DRESSED. PT STATES THAT HES WAITING FOR LUNCH
--- NOTE | 2023-10-31 12:11 | NUR ---
PT DRESSED IN PERSONAL CLOTHES, AT BEDSIDE UPON ENTERING. PT AND GIVEN DISCHARGE INSTRUCTIONS, ALL QUESTIONS ANSWERED AND BOTH VERBALIZED UNDERSTANDING. PT BELONGING GATHERED INCLUDING CANE AND CPAP. PT DENIES NEEDS AT THIS TIME. PT ESCORTED TO PERSONAL VEHICLE VIA WHEELCHAIR BY SAYDA LANTIGUA
== END 2023-10-31 12:13 | disposition home or self-care (01) | DRG 309 ==
LOC: MEDICAL 10-29 08:23
PROVIDERS: ADMIT Internal Medicine Cardiovascular Disease
DX: I48.0 Paroxysmal atrial fibrillation (principal); Z68.42 Body mass index [BMI] 45.0-49.9, adult; J44.9 Chronic obstructive pulmonary disease, unspecified; N18.30 Chronic kidney disease, stage 3 unspecified; I87.2 Venous insufficiency (chronic) (peripheral); G47.33 Obstructive sleep apnea (adult) (pediatric); I27.20 Pulmonary hypertension, unspecified; E11.22 Type 2 diabetes mellitus with diabetic chronic kidney disease; I12.9 Hypertensive chronic kidney disease with stage 1 through stage 4 chronic kidney disease, or unspecified chronic kidney disease; E87.6 Hypokalemia; E66.01 Morbid (severe) obesity due to excess calories; E83.42 Hypomagnesemia; I48.92 Unspecified atrial flutter; Z86.73 Personal history of transient ischemic attack (TIA), and cerebral infarction without residual deficits; Z99.89 Dependence on other enabling machines and devices; Z87.442 Personal history of urinary calculi; Z79.84 Long term (current) use of oral hypoglycemic drugs; Z79.01 Long term (current) use of anticoagulants; Z79.899 Other long term (current) drug therapy; Z79.890 Hormone replacement therapy; Z87.891 Personal history of nicotine dependence; Z91.030 Bee allergy status; Z23 Encounter for immunization
CPT/HCPCS: A9270; J3475

== ENCOUNTER 2024-06-04 11:43 | Emergency (ER) | payer MEDICARE ==
[~2024-06-04] VITALS: Ht 182.9 cm; Wt 149.7 kg
[~2024-06-04 11:43] MED LIST changes: +BETAPACE 80MG80 MG PO; +COGNIQUIL CAPS1 EACH PO
[2024-06-04 11:48] VITALS: TEMP 98.4
[2024-06-04 13:58] LABS: HEMATOCRIT 44.5 % (42.0-52.0); HEMOGLOBIN 14.4 g/dl (13.5-18.0); MEAN CELL VOLUME 89 fl (80.0-100.0); MEAN CORPUSCULAR HEMOGLOBIN 29 pg (27-31); MEAN CORPUSCULAR HGB CONC 32 g/dl (33.0-37.0); MEAN PLATELET VOLUME 9.5 fl (7.4-10.4); PLATELET COUNT 165 K/mm3 (130-400); RED BLOOD COUNT 5.01 M/mm3 (4.20-5.60); REDCELL DISTRIBUTION WIDTH-CV 15.7 % (11.5-14.5)
[2024-06-04 14:16] LABS: ALANINE AMINOTRANSFERASE 20 U/L (0-55); ALBUMIN 3.3 g/dL (3.4-4.8); ALKALINE PHOSPHATASE 105 U/L (40-150); ANION GAP 12 mmol/L (7-16); AST,SGOT 19 U/L (5-34); BILIRUBIN,TOTAL 1.2 mg/dL (0.2-1.2); BLOOD UREA NITROGEN 8 mg/dL (8-26); CALCIUM 8.6 mg/dL (8.4-10.2); CHLORIDE 106 mEq/L (98-107); CREATININE, serum 1.25 mg/dL (0.72-1.25); GLUCOSE 106 mg/dL (70-99); LIPASE 26 U/L (8-78); POTASSIUM 3.6 mEq/L (3.5-4.5); SODIUM 138 mEq/L (136-145); TOTAL PROTEIN 6.9 g/dl (6.2-8.1)
[2024-06-04 14:24] LABS: TROPONIN-I < 0.010 ng/mL (0.00-0.033)
[2024-06-04] MEDS ORDERED: Iohexol 300 - 100 ML VIAL IV ONE (14:35)
[2024-06-04] MEDS ORDERED: NS 100 ML IV SCH (14:36)
[2024-06-04 15:18] LABS: COLLECTION METHOD CLEAN CATCH
[2024-06-04 15:24] LABS: URINE APPEARANCE CLEAR (CLEAR/HAZY); URINE BLOOD NEGATIVE (NEGATIVE); URINE COLOR YELLOW (YELLOW); URINE GLUCOSE 3+ (NEGATIVE); URINE KETONE NEGATIVE (NEGATIVE); URINE NITRATE NEGATIVE (NEGATIVE); URINE PROTEIN(semi-quant) NEGATIVE (NEGATIVE)
[2024-06-04] MEDS ORDERED: NORCO 325 MG-51 TAB PO (15:36)
[2024-06-04 15:55] VITALS: BP 114/62; PULSE 63
== END 2024-06-04 15:55 | disposition home or self-care (01) ==
LOC: COL.ER 11:43
PROVIDERS: Family Medicine
DX: G89.29 Other chronic pain (principal); R10.9 Unspecified abdominal pain
CPT/HCPCS: Q9967